=== PATIENT | male | born 1960 | race Caucasian/White ===

== ENCOUNTER → 2018-05-25 | Outpatient (CLI) | payer OTHER ==
[2018-05-25 15:59] LABS: ABG BASE EXCESS 3.3 MMOL/L (-2.5-2.5); ABG OXYGEN SATURATION 94 % (94-100); ABG PCO2 50 MMHG (35-45); ABG PH 7.37 (7.37-7.43); ABG PO2 67 MMHG (79-93); ABG TCO2 29.7 MMOL/L (21.0-31.0)
[2018-05-25 16:00] LABS: ALLENS TEST YES-POS; INSPIRED O2 ROOM AIR; VENTILATOR NO
[2018-05-25 16:01] LABS: PATIENT TEMP 98.5
== END ==
LOC: RT 15:20
PROVIDERS: ATTEND Nurse Practitioner Family
DX: J44.9 Chronic obstructive pulmonary disease, unspecified (principal); R06.00 Dyspnea, unspecified; R91.8 Other nonspecific abnormal finding of lung field
CPT/HCPCS: 36600; 82805; 94761

== ENCOUNTER → 2018-05-25 | Outpatient (CLI) | payer BC, OTHER ==
[~2018-05-25] MED LIST: IOHEXOL 350 MG/ML 100 ML (OMNIPAQUE 350) VIAL IV ONE; NS 250 ML (IVPB) BAG IV ONE
--- NOTE | 2018-05-25 14:05 | Diagnostic Imaging Report ---
PROCEDURE: CT chest with contrast only. TECHNIQUE: Multiple contiguous axial images were obtained through the chest after administration of intravenous contrast. INDICATION: Right lower lobe collapse one month ago and shortness of breath. COMPARISON: No prior studies are available for comparison. FINDINGS: No axillary lymphadenopathy is seen. No definite hilar or mediastinal lymphadenopathy is seen. There are small lymph nodes in the mediastinum in the right paratracheal and subcarinal location. No definite pathologically enlarged nodes are seen. Small lymph nodes in the reza bilaterally are also noted. No pericardial or pleural fluid is identified. Central airways appear to be patent. The pulmonary parenchyma demonstrates minimal scarring or atelectasis in the right apex posteriorly. No parenchymal mass or nodule is seen. No infiltrate is identified. The upper abdomen is unremarkable. IMPRESSION: There are small lymph nodes in the mediastinum and reza bilaterally. No pathologically enlarged thoracic lymphadenopathy is seen. No parenchymal abnormality is identified. Dictated by: Dictated on workstation # [id number]
== END ==
LOC: RAD 10:14
PROVIDERS: ATTEND Family Medicine
DX: R91.8 Other nonspecific abnormal finding of lung field (principal); R06.02 Shortness of breath
CPT/HCPCS: 71260

== ENCOUNTER → 2018-06-23 | Outpatient (CLI) | payer OTHER ==
[~2018-06-23] MED LIST changes: +RECEIVED CONTRAST (Hold Metformin) IV SCH
[2018-06-23 13:13] LABS: BUN/CREATININE RATIO 18; CREATININE SERUM 0.96 MG/DL (0.60-1.30); GFR ESTIMATED > 60
--- NOTE | 2018-06-23 17:04 | Diagnostic Imaging Report ---
INDICATION: Lower extremity edema. COMPARISON: None. TECHNIQUE: Duplex, dwyer-scale and color-flow imaging of the bilateral lower extremity venous system was performed. FINDINGS: The common femoral vein, superficial femoral vein, profunda femoris, and popliteal veins are normal. These vessels show normal compressibility, color flow, and doppler augmentation. The deep calf veins, although not very well seen, demonstrate no distinct intraluminal thrombus. IMPRESSION: Negative venous Doppler of the bilateral lower extremities. Dictated by: Dictated on workstation # [id number]
--- NOTE | 2018-06-23 22:42 | Diagnostic Imaging Report ---
PROCEDURE: CT chest with contrast only. TECHNIQUE: Multiple contiguous axial images were obtained through the chest after administration of intravenous contrast. DATE: June 23, 2018. COMPARISON: CT chest, May 25, 2018. INDICATION: 58-year-old male, shortness of breath. FINDINGS: There is a 3 mm right lower lobe pulmonary nodule on axial image 37 which is retrospectively unchanged. There is minimal atelectasis or scarring in the posterior aspect of the right upper lobe on axial image 12. There is no otherwise identified pulmonary nodule. There is no additional focal airspace consolidation. There is narrowing of the medial collateral dimension of the trachea which measures less than two thirds of the AP diameter. This is compatible with a saber-sheath trachea. The central airways are patent. There is no pneumothorax. There is no pleural effusion. The heart is not enlarged. There is no pericardial effusion. There is no identified central or segmental pulmonary embolus. There is no abnormally enlarged mediastinal, hilar or axillary lymph node which meets CT size criteria for adenopathy. There is a small accessory splenule on axial image 55. Additional evaluation of the visualized portions of the upper abdomen is unremarkable. There is a mild chronic appearing deformity of the right clavicle. There are degenerative changes of the spine. There is no identified acute bony abnormality. IMPRESSION: CT chest: 1.There is a 3 mm right lower lobe pulmonary nodule stable since May 25, 2018. Consider followup CT chest in six months to assess for continued stability. 2. Narrowing of the medial to lateral dimension of the trachea compatible with saber-sheath trachea. 3. No identified acute cardiopulmonary abnormality. Dictated by: Dictated on workstation # [id number]
== END ==
LOC: CARD 12:45
PROVIDERS: ATTEND Nurse Practitioner Family
DX: J44.9 Chronic obstructive pulmonary disease, unspecified (principal); R60.9 Edema, unspecified; R06.02 Shortness of breath; R91.8 Other nonspecific abnormal finding of lung field
CPT/HCPCS: 36415; 71260; 82565; 84520; 93306; 93970

== ENCOUNTER → 2018-06-28 | Outpatient (CLI) | payer OTHER ==
[~2018-06-28] MED LIST changes: -IOHEXOL 350 MG/ML 100 ML (OMNIPAQUE 350) VIAL IV ONE; -NS 250 ML (IVPB) BAG IV ONE; -RECEIVED CONTRAST (Hold Metformin) IV SCH; +RT-ALBUTEROL SULF 2.5 MG/3 ML PRE-MIX VIAL INH ONE
== END ==
LOC: RT 11:38
PROVIDERS: ATTEND Nurse Practitioner Family
DX: J44.9 Chronic obstructive pulmonary disease, unspecified (principal); R06.02 Shortness of breath; R91.8 Other nonspecific abnormal finding of lung field
CPT/HCPCS: 94060; 94726; 94729

== ENCOUNTER 2018-07-21 20:07 | Outpatient (CLI) | payer OTHER | END 2018-07-22 06:15 | disposition home or self-care (01) | LOC: SLEEP 20:07 | PROVIDERS: ATTEND Internal Medicine Critical Care Medicine | DX: G47.33 Obstructive sleep apnea (adult) (pediatric) (principal); R09.02 Hypoxemia | CPT/HCPCS: 95811 ==

== ENCOUNTER → 2019-06-09 | Outpatient (CLI) | payer OTHER ==
--- NOTE | 2019-06-09 09:39 | Diagnostic Imaging Report ---
CT CHEST WO TECHNIQUE: Multiple contiguous axial images were obtained through the chest without the use of intravenous contrast. All CT scans use one or more of the following dose optimizing techniques: automated exposure control, MA and/or KvP adjustment based on a patient size and exam type, or iterative reconstruction. INDICATION: Follow-up lung nodule. COMPARISON: 06/23/2018. FINDINGS: Lungs and airway: No endoluminal nodule in the trachea. No pulmonary mass or consolidation. Stable 3 mm pulmonary nodule within the superior segment of the right lower lobe. No new pulmonary nodule. Pleura: No pleural effusion or pneumothorax. Heart and mediastinum: Thyroid is normal. No supraclavicular or axillary lymphadenopathy. No mediastinal, hilar or juxtaphrenic lymphadenopathy. Heart is normal in size without pericardial effusion. Normal caliber thoracic aorta. Upper abdomen: No acute abnormality in the upper abdomen. Stable small splenule. Musculoskeletal: No worrisome focal osseous lesions. IMPRESSION: 1. Stable 3 mm right micronodule in the right lung which is benign in etiology given the long-term stability and small size. 2. No new pulmonary nodule or abnormality that requires dedicated follow-up imaging. Dictated by: Dictated on workstation # [id number]
== END ==
LOC: RAD 08:27
PROVIDERS: ATTEND Nurse Practitioner Family
DX: J44.9 Chronic obstructive pulmonary disease, unspecified (principal); R91.1 Solitary pulmonary nodule
CPT/HCPCS: 71250